=== PATIENT | female | born 1965 | race Caucasian/White ===

== ENCOUNTER 2017-05-04 04:55 | Emergency (ER) | payer SELFPAY ==
[~2017-05-04] VITALS: Ht 165.1 cm; Wt 55.0 kg
[~2017-05-04 04:55] MED LIST: CYCL-36 PO; HYDRO50 PO; IBUP-238 PO; MACR100C PO; NITR-29 PO; OLAN10 PO
[2017-05-04 04:57] VITALS: BP 132/86; PULSE 86; RESP 16; TEMP 98.3; O2SAT 99
--- NOTE | 2017-05-04 05:31 | PD ---
HPI Chief Complaint: Cold / Flu Symptoms Time Seen by Provider: 05:27 Travel History International Travel<30 days: No Contact w/Intl Traveler<30days: No Traveled to known affect area: No History of Present Illness HPI Patient comes in complaining of dry nonproductive cough, sore throat, congestion , and subjective fevers ongoing for a week. Patient's tried using over-the- counter sinus medication seemed to help a little bit. Patient feels symptoms are getting progressively worse. Denies any nausea, vomiting, diarrhea, abdominal pain, chest pain, shortness of breath, neck pain, or back pain. Patient reports associated right frontal sinus headache. Patient states when she woke this morning her right eye was matted shut. Patient denies any eye pain or change in vision. PFSH Past Medical History Depression: Yes Diabetes: No Diminished Hearing: No Insomnia: No Psychiatric: Yes Immunizations Current: No Schizophrenia: Yes Menopausal: No : 7 Para: 2 Miscarriage: 1 : 4 Tubal Ligation: Yes Past Surgical History Section: Yes Gynecologic Surgery: Yes (C SECTION ) Social History Alcohol Use: No Tobacco Use: No Substance Use: Yes (MARIJUANA DAILY) Allergies-Medications (Allergen,Severity, Reaction): Coded Allergies: Compazine (Verified Allergy, Severe, STIFFENS UP., 05/04/17) Reported Meds & Prescriptions Reported Meds & Active Scripts Active Ventolin Hfa 18 GM Inh (Albuterol Sulfate) 90 Mcg/Act Aer 2 Puff INH Q4-6H PRN Zithromax Z-Romel (Azithromycin) 250 Mg Dspk 250 Mg PO DIRECTED 500 MG (2 tabs) day 1, then 1 tab days 2-5. Review of Systems Except as stated in HPI: all other systems reviewed are Neg Physical Exam Narrative GENERAL: Well-developed, well nourished, in no acute distress, and non-ill appearing. SKIN: Focused skin assessment warm and dry. HEAD: Atraumatic. Normocephalic. EYES: Pupils equal and round. EOMI. No scleral icterus. No injection or drainage. ENT: No nasal bleeding or discharge. Mucous membranes pink and moist. Tympanic membranes are pearly claudio bilaterally. Posterior pharynx nonerythematous without exudate. Uvula is midline. Patient reports tenderness to right frontal sinus. NECK: Trachea midline. No cervical lymphadenopathy. Supple. No nuclear rigidity. CARDIOVASCULAR: Regular rate and rhythm. No murmur appreciated. RESPIRATORY: No accessory muscle use. No respiratory distress. Clear to auscultation. Breath sounds equal bilaterally. No coughing on exam. MUSCULOSKELETAL: No obvious deformities. No clubbing. No cyanosis. No edema. Full range of motion. NEUROLOGICAL: Awake and alert. No obvious cranial nerve deficits. Motor grossly within normal limits. Normal speech. PSYCHIATRIC: Appropriate mood and affect; insight and judgment normal. Data Data Last Documented VS Vital Signs Date Time Temp Pulse Resp B/P Pulse Ox O2 Delivery O2 Flow Rate FiO2 05/04/17 05:29 86 16 99 05/04/17 04:57 98.3 132/86 [facility] Medical Decision Making Medical Screen Exam Complete: Yes Emergency Medical Condition: Yes Differential Diagnosis Sinusitis, bronchitis, pneumonia, upper respiratory infection, allergic rhinitis , other Narrative Course Patients symptom complex is consistent with bronchitis. The patient is non-ill appearing and is in no respiratory distress and comfortable. The patient moves air well and oxygen saturations are normal. There is no clinical evidence to suggest pneumonia at this time, but patient was offered a x-ray but has declined at this time. Plan of care and management were discussed with the patient who agreed with plan. The patient was instructed to follow up with their physician and instructed to return if worsens, progressively worsening shortness of breath or difficulty breathing, persistent fever, chest pains or discomfort, inability to keep medication or fluids down with or without vomiting , or as needed. Patient looks great, non-ill appearing. The patient is tolerating fluids and is well hydrated. Appears acute sinusitis in addition to her bronchitis. No clinical evidence by history or evaluation to suspect meningitis and/or sepsis. There was no evidence to suggest deep abscess or cavernous sinus involvement. I discussed with the patient, diagnosis, plan of care, medications and to follow up with the patients primary physician. The patient was instructed to return if the worsens in anyway, especially if not tolerating fluids, increased sinus pain or swelling, worsening headache, persistent fever, difficulty swallowing or breathing, or as needed. The patient agreed with plan Patient in no obvious distress upon re-evaluation. Patient was asked if they wanted to speak to my attending, which the patient did not wish to do at this time. Any questions/concerns in reference to patient diagnosis/condition discussed and clarified prior to patient's discharge. Reinforced sheer importance of close follow up with patient's primary physician or primary care clinic. Instructed patient to return to ED immediately, if symptoms return/ worsen. Pt showed understanding of above instructions. Further instructions and recommendations were detailed in discharge paperwork. Pt ambulated without difficulty out of ED at discharge. Diagnosis Primary Impression: Bronchitis Additional Impression: Sinusitis, acute frontal Qualified Code: J01.10 - Acute frontal sinusitis, recurrence not specified Patient Instructions: Acute Bronchitis (ED), General Instructions, Sinusitis ( ED) Additional Instructions: Follow-up with your primary care physician in 3-5 days for reevaluation. Take all medication as prescribed. Use [id number] Tylenol and/or ibuprofen as needed for pain and/or fevers. Follow instructions on the packaging. Drink plenty of non-caffeinated and nonalcoholic fluids. Return to the emergency department if symptoms get worse. Med/Other Pt SpecificInfo: Prescription(s) given Scripts Albuterol 18 GM Inh (Ventolin Hfa 18 GM Inh)90 Mcg/Act Aer2 Puff INH Q4-6H PRN ( COUGH) #1 INHALER Ref 0 Prov:Rena Allen MD 05/04/17 Azithromycin (Zithromax Z-Romel)250 Mg [id number] Mg PO DIRECTED #1 DSPK Ref 0 500 MG (2 tabs) day 1, then 1 tab days 2-5. Prov:Rena Allen MD 05/04/17 Disposition: 01 DISCHARGE HOME Condition: Stable Nadeem French May 04, 2017 05:31
[2017-05-04] MEDS ORDERED: VENTAER INH (05:32)
[2017-05-04] MEDS ORDERED: ZITHTAB PO (05:32)
== END 2017-05-04 05:55 | disposition home or self-care (01) ==
LOC: NEPD 04:55
DX: J40 Bronchitis, not specified as acute or chronic (principal); J01.10 Acute frontal sinusitis, unspecified; R51 Headache; F20.9 Schizophrenia, unspecified; Z79.899 Other long term (current) drug therapy
CPT/HCPCS: 99284

== ENCOUNTER 2017-06-08 16:29 | Emergency (ER) | payer SELFPAY ==
[~2017-06-08 16:29] MED LIST changes: -CYCL-36 PO; -HYDRO50 PO; -IBUP-238 PO; -MACR100C PO; -NITR-29 PO; -OLAN10 PO; +VENTAER INH; +ZITHTAB PO
[2017-06-08 16:31] VITALS: BP 131/90; PULSE 71; RESP 16; TEMP 98.2; O2SAT 99
--- NOTE | 2017-06-08 16:49 | PD ---
Physical Exam Date Seen by Provider: Jun 08, 2017 Time Seen by Provider: 16:46 Narrative Pt is a 51 year old female presenting to the ED for evaluation of left arm and shoulder pain. Pt states she also has left upper chest wall pain, midsternal pain. She reports a family history of heart attacks. She states she has a history of HTN. Movement does not exacerbate or influence pain. Pt states she becomes fatigued with activity. Pain is a 7/10. Pt states she woke up like this this morning. VSS, awaiting bed placement. Protocol initiated. Data Data Last Documented VS Vital Signs Date Time Temp Pulse Resp B/P (MAP) Pulse Ox O2 Delivery O2 Flow Rate FiO2 06/08/17 16:31 98.2 71 16 131/90 (104) 99 MDM Supervised Visit with ATUL: Olga Wyman Jun 08, 2017 16:49
[2017-06-08] MEDS ORDERED: ASPIRIN 81 MG CHEW TAB PO ONE (17:00)
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
[2017-06-08 17:49] LABS: AUTOMATED NEUTROPHIL # 3.3 TH/MM3 (1.8-7.7); BASOPHIL % 0.2 % (0.0-2.0); EOSINOPHIL % 0.1 % (0.0-4.0); HEMATOCRIT 34.4 % (35.0-46.0); HEMO FLAGS DIFF FINAL; LYMPH % 24.7 % (9.0-44.0); LYMPHOCYTE # 1.2 TH/MM3 (1.0-4.8); MEAN CELL VOLUME 91.5 FL (80.0-100.0); MEAN CORPUSCULAR HEMOGLOBIN 32.1 PG (27.0-34.0); MEAN CORPUSCULAR HGB CONC 35.1 % (32.0-36.0); MONO % 9.3 % (0.0-8.0); NEUT % 65.7 % (16.0-70.0); PLATELET COUNT 269 TH/MM3 (150-450); RED BLOOD COUNT 3.76 MIL/MM3 (4.00-5.30)
[2017-06-08 17:50] LABS: APTT (PATIENT) 25.2 SEC (24.3-30.1); INTERNATIONAL NORMALIZED RATIO 0.9 RATIO; PROTHROMBIN TIME - PATIENT 9.7 SEC (9.8-11.6)
[2017-06-08 18:01] LABS: ALT (GPT) 23 U/L (10-53)
[2017-06-08 18:05] LABS: ALKALINE PHOSPHATASE 100 U/L (45-117); CREATINE KINASE 154 U/L (26-192); TOTAL BILIRUBIN ADULT 0.4 MG/DL (0.2-1.0)
[2017-06-08 18:06] VITALS: BP 130/84; PULSE 73; RESP 16; O2SAT 100
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
[2017-06-08 18:17] LABS: CKMB 1.3 NG/ML (0.5-3.6)
[2017-06-08 18:19] LABS: ANION GAP 5 MEQ/L (5-15); AST (GOT) 22 U/L (15-37); BICARBONATE 29.5 MEQ/L (21.0-32.0); BLOOD UREA NITROGEN 11 MG/DL (7-18); CHLORIDE 106 MEQ/L (98-107); GLOMERULAR FILTRATION RATE 72 ML/MIN (>89); MAGNESIUM 2.1 MG/DL (1.5-2.5); SODIUM (NA) 140 MEQ/L (136-145)
[2017-06-08] MEDS ORDERED: NAPR500 PO (18:48)
--- NOTE | 2017-06-09 09:10 | EKG ---
Date Performed: 06/08/2017 Time Performed: 17:11:36 PTAGE: 51 years EKG: Sinus rhythm NORMAL ECG NO PREVIOUS TRACING DOCTOR: Miguel Angel Allen Interpretating Date/Time 06/09/2017 09:08:29
== END 2017-06-08 19:00 | disposition home or self-care (01) ==
LOC: NEPE 16:29
DX: M25.512 Pain in left shoulder (principal); R07.89 Other chest pain; F12.10 Cannabis abuse, uncomplicated
CPT/HCPCS: 71020; 80053; 82550; 82552; 83735; 84484; 85025; 85610; 85730; 93005; 99285